=== PATIENT | female | born 1945 ===

== ENCOUNTER 2023-04-04 13:30 | Outpatient (OUT) | payer MEDICARE, SELFPAY ==
--- NOTE | 2023-04-04 | XR_ITS ---
The [address] [address] Patient Name: JANINE CAMEJO MRN: [id number] date: 1945 Sex: F Assigned Patient Location: [facility] Current Patient Location: Accession/Order Number: [id number] Exam Date: 04/04/2023 13:46 Report Date: 04/05/2023 07:33 At the request of: KHANG VACA Procedure: XR foot LT min 3V PROCEDURE: XR foot LT min 3V HISTORY: LEFT FOOT PAIN , left heel pain for 6 weeks, arch pain COMPARISON: None. FINDINGS: BONES:Mild degenerative changes the first metatarsophalangeal joint. Large calcaneal plantar spur. No fracture, dislocation, bone lesion. No significant loss of plantar arch. SOFT TISSUES:No visible soft tissue swelling. EFFUSION:None visible. OTHER: Negative. XR/XR foot LT min 3V IMPRESSION: 1. Large calcaneal plantar spur which may contribute to patient's symptoms. Electronically authenticated by: VIDA BARNES Date: 04/05/2023 07:33
== END 2023-04-04 13:31 | disposition home or self-care (01) ==
LOC: RAD 13:35
PROVIDERS: Visit Provider Physician Assistant
DX: M79.672 Pain in left foot (principal); M77.32 Calcaneal spur, left foot
CPT/HCPCS: 73630